=== PATIENT | male | born 1990 | race Caucasian/White ===

== ENCOUNTER 2023-03-30 12:52 | Emergency (ER) | payer OTHER, SELFPAY ==
[2023-03-30 13:08] VITALS: BP 133/83; PULSE 84; RESP 16; TEMP 36.3; O2SAT 100
--- NOTE | 2023-03-30 13:19 | ED.SKABFB ---
HPI - Skin/Abscess/Foreign Bdy General Chief complaint: Skin/Abscess/Foreign Body Stated complaint: Left Finger Irritation Time Seen by Provider: 03/30/23 13:19 Source: patient Mode of arrival: ambulatory Limitations: no limitations History of Present Illness HPI narrative: 32-year-old male presents with redness, swelling and tenderness to left index finger for 3 days. 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 Has had similar infection. Denies drainage. Afebrile. All systems reviewed and negative except as noted above. Related Data Home Medications Medication Instructions Recorded Confirmed esomeprazole magnesium 20 mg 20 mg PO DAILY 03/30/23 03/30/23 tablet,delayed release (Nexium 24HR) Allergies Allergy/AdvReac Type Severity Reaction Status Date / Time No Known Allergies Allergy Verified 03/30/23 13:01 Review of Systems Review of Systems: CONSTITUTIONAL: Denies fever, chills, or sweats. EYES: Denies visual changes, redness, or discharge. ENT: Denies rhinorrhea, congestion, sore throat, or otalgia. CARDIOVASCULAR: Denies chest pain, palpitations, or edema. RESPIRATORY: Denies cough or dyspnea. GASTROINTESTINAL: Denies abdominal pain, nausea, vomiting, or diarrhea. GENITOURINARY: Denies dysuria or hematuria. SKIN: Denies rash or itching. Reports redness, swelling and tenderness to left index finger. MUSCULOSKELETAL: Denies back pain, joint pain, or myalgia. NEUROLOGIC: Denies headache, numbness, or weakness. PSYCHIATRIC: Denies anxiety or depression. All other systems reviewed are negative, except as documented in HPI. PMFSH Comments At time of signature, agree with nursing past medical, surgical, social and family history. There is no relevant family history pertinent to the presenting complaint. Exam Narrative: GENERAL: This is a well-nourished, well-developed patient, in no apparent distress. HEAD: normocephalic, atraumatic. EYES: PERRL. Sclera clear/white. Vision is grossly intact. EARS: External ears normal NOSE: External nose normal NECK: Neck supple, non-tender without lymphadenopathy, masses or thyromegaly. CARDIOVASCULAR: Regular rate and rhythm without murmurs, gallops, or rubs. RESPIRATORY: Clear to auscultation. Breath sounds equal bilaterally. No wheezes, rales, or rhonchi. SKIN: warm, Dry, intact with no suspicious lesions or rash, good texture and turgor. erythema to the medial aspect cuticle left index finger with swelling, tenderness on palpation. No fluctuance or drainage. NEURO: awake, alert, and oriented to person, place and time. There were no obvious focal neurologic abnormalities. EXTREMITIES: No joint tenderness, effusion, or edema noted. Course Course Level of Care: Express Care Visit Vital Signs Vital signs: Vital Signs Temperature 36.3 C L 03/30/23 13:08 Pulse Rate 84 03/30/23 13:08 Respiratory Rate 16 03/30/23 13:08 Blood Pressure 133/83 03/30/23 13:08 Pulse Oximetry 100 03/30/23 13:08 Oxygen Delivery Room Air 03/30/23 13:08 Temperature 36.3 C L 03/30/23 13:08 Pulse Rate 84 03/30/23 13:08 Respiratory Rate 16 03/30/23 13:08 Blood Pressure 133/83 03/30/23 13:08 Pulse Oximetry 100 03/30/23 13:08 Oxygen Delivery Room Air 03/30/23 13:08 Reviewed MDM - Skin/Abscess/Foreign Bdy MDM Narrative Medical decision making narrative: there is no purulence, drainage or fluctuance noted for I and D of paronychia. Will start on Augmentin and Bactroban. Patient is aware of diagnosis, understands and agrees to treatment plan. Anticipatory guidance given. Patient agrees to follow-up as directed and is aware of reasons to seek care at the emergency department. Portions of this record may have been created with voice recognition software Discharge Plan Discharge Clinical Impression: Paronychia of left index finger Patient Disposition: Home, Self-Care Condition: Stable Instructions: Antibiotic F
== END 2023-03-30 13:31 | disposition home or self-care (01) ==
PROVIDERS: Emergency Provider Nurse Practitioner Family
DX: L03.012 Cellulitis of left finger (principal); Z86.16 Personal history of COVID-19
CPT/HCPCS: 99213; G0463

== ENCOUNTER 2023-04-06 11:54 | Emergency (ER) | payer OTHER, SELFPAY ==
--- NOTE | 2023-04-06 12:06 | ED.SKABFB ---
HPI - Skin/Abscess/Foreign Bdy General Stated complaint: Finger Lt Hand Irritation Source: patient and RN notes reviewed History of Present Illness HPI narrative: 32 yo M presents to urgent care with complaints of continued redness to his left index finger. Pt was here 7 days ago for a paronychia and treated with augmentin and mupiorcin. Pt states it is improving and is no longer swollen or having drainage. Pt denies any significant pain or fevers. Related Data Home Medications Medication Instructions Recorded Confirmed esomeprazole magnesium 20 mg 20 mg PO DAILY 03/30/23 03/30/23 tablet,delayed release (Nexium 24HR) Allergies Allergy/AdvReac Type Severity Reaction Status Date / Time No Known Allergies Allergy Verified 04/06/23 12:35 Review of Systems Review of Systems: CONSTITUTIONAL: Denies fever, chills, or sweats. EYES: Denies visual changes, redness, or discharge. ENT: Denies otalgia and sore throat CARDIOVASCULAR: Denies chest pain, palpitations, or edema. RESPIRATORY: Denies cough or dyspnea. GASTROINTESTINAL: Denies abdominal pain, nausea, vomiting, or diarrhea. GENITOURINARY: Denies dysuria or hematuria. MUSCULOSKELETAL: Denies back pain, joint pain, or myalgia. NEUROLOGIC: Denies headache, numbness, or weakness. Pertinent positives per HPI. PMFSH Comments At the time of my signature, I reviewed and agree with the nursing past medical, surgical, social, and family history. There is no relevant family history pertinent to the patient complaint. Exam Narrative: GENERAL: This is a well-nourished, well-developed patient, in no apparent distress. HEAD: normocephalic, atraumatic. EYES: Sclera clear/white. Vision is grossly intact. EARS: External ears normal, auditory canals clear and without drainage. Hearing grossly intact. NOSE: External nose normal with no obvious nasal discharge, nares without redness, no rhinorrhea. THROAT: Mucous membranes moist, posterior pharynx clear. NECK: Neck supple, non-tender without lymphadenopathy, masses or thyromegaly. CARDIOVASCULAR: Regular rate RESPIRATORY: No respiratory distress SKIN: warm, intact with no suspicious lesions or rash, good texture and turgor. NEURO: awake, alert, and oriented to person, place and time. There were no obvious focal neurologic abnormalities. EXTREMITIES: No clubbing, cyanosis, or edema. No joint tenderness, effusion, or edema noted. Leeft index finger tip noted to be slightly erythremic. No swelling or exudate or fluctuance noted. BACK: Nontender without deformity or crepitus. No flank tenderness. Course Course Level of Care: Express Care Visit Vital Signs Vital signs: Vital Signs Temperature 97.7 F 04/06/23 12:24 Pulse Rate 61 04/06/23 12:24 Respiratory Rate 18 04/06/23 12:24 Blood Pressure 147/92 H 04/06/23 12:24 Pulse Oximetry 100 04/06/23 12:24 Oxygen Delivery Room Air 04/06/23 12:24 Temperature 97.7 F 04/06/23 12:24 Pulse Rate 61 04/06/23 12:24 Respiratory Rate 18 04/06/23 12:24 Blood Pressure 147/92 H 04/06/23 12:24 Pulse Oximetry 100 04/06/23 12:24 Oxygen Delivery Room Air 04/06/23 12:24 reviewed MDM - Skin/Abscess/Foreign Bdy MDM Narrative Medical decision making narrative: Continue using the mupiorcin twice a day for the next 7 days. If you notice any new or worsenign symptoms, go to the ER for further evaluation. Differential Diagnosis Differential diagnosis: Likely abscess of skin or subcutaneous tissue, urticaria, cellulitis, insect bites, impetigo and contact dermatitis Critical Care Time Critical Care Time Critical Care Time: No Discharge Plan Discharge Clinical Impression: Visit for wound check Patient Disposition: Home, Self-Care Condition: Stable Instructions: Antibiotic Form, Paronychia (ED) Additional Instructions: Continue using the mupiorcin twice a day for the next 7 days. If you notice any new or worsenign symptoms, g
[2023-04-06 12:24] VITALS: BP 147/92; PULSE 61; RESP 18; TEMP 36.5; O2SAT 100
== END 2023-04-06 12:39 | disposition home or self-care (01) ==
PROVIDERS: Emergency Provider Nurse Practitioner Family
DX: Z48.00 Encounter for change or removal of nonsurgical wound dressing (principal); L53.9 Erythematous condition, unspecified; K21.9 Gastro-esophageal reflux disease without esophagitis; Z86.16 Personal history of COVID-19
CPT/HCPCS: 99211; 99213; G0463

== ENCOUNTER 2023-04-26 11:48 | Emergency (ER) | payer OTHER, SELFPAY ==
[2023-04-26 12:07] VITALS: BP 126/72; PULSE 65; RESP 18; TEMP 36; O2SAT 100
--- NOTE | 2023-04-26 12:24 | ED.GENADULT ---
HPI - General Adult General Chief complaint: Ear Stated complaint: rt ear discomfort Time Seen by Provider: 04/26/23 12:15 Source: patient, RN notes reviewed and old records reviewed Mode of arrival: ambulatory Limitations: no limitations History of Present Illness HPI narrative: 32 year male patient presents to [facility] with complaints right sinus pain and right earache this started 2 days ago. Patient states has sinus congestion for several months, but states has allergy issues. Patient worried has foreign body in right ear. MD complaint: Earache, sinus congestion/pain Onset (ago): day(s) (2) Related Data Allergies Allergy/AdvReac Type Severity Reaction Status Date / Time No Known Allergies Allergy Verified 04/06/23 12:35 Review of Systems Constitutional: Constitutional: Reports no additional constitutional complaints Eyes: Eyes: Reports no additional eye complaints ENT: Denies vertigo, Denies dizziness and Reports nasal congestion ( right-sided) Comments: right earache Cardiovascular: Cardiovascular: Reports no additional cardiovascular complaints Respiratory: Respiratory: Reports no additional respiratory complaints Neurologic: Reports system reviewed and no additional complaints, except as documented PMFSH Comments At the time of my signature, I reviewed and agree with the nursing past medical, surgical, social, and family history. There is no relevant family history pertinent to the patient complaint. Exam Const: General: cooperative, healthy appearing, no acute distress and well nourished Nutritional Appearance: well nourished Orientation/consciousness: patient oriented x3 Limitations: no limitations HENMT: Head: normal to inspection and normocephalic Ears: external ears normal, mastoids normal, Abnormal EAC present and TM abnormal with fluid behind the TM Face/Nose/Sinus: Nasal discharge present purulent Face and sinus: sinus tenderness frontal ( right-sided) Mouth: Yes Normal oral and palatal mucosa present, Yes oropharynx normal and Yes moist mucous membranes Throat: posterior oropharynx normal, tonsils normal, uvula midline and no uvular edema Eyes: General: appearance normal, both eyes and all related structures Sclera: sclerae normal Pupils: Equal, round and reactive pupils present Resp: Effort & Inspection: normal respiratory effort, able to speak in complete sentences, no audible wheezes, no cough, no respiratory distress and no retractions Auscultation: clear to auscultation bilaterally, no crackles, no rales, no rhonchi and no wheezes Cardio: Rate: regular rate Rhythm: regular rhythm Skin: General skin exam: normal color and no rashes or lesions noted Neuro: General: patient oriented x3 Cranial nerves: Yes Equal, round and reactive pupils present Psych: Appearance: grossly normal Course Course Emergency Course: Patient is aware of diagnosis, understands and agrees to treatment plan.? Anticipatory guidance given.? Patient agrees to follow-up as directed and is aware of reasons to seek care at the emergency department. Some parts of this dictation were generated by voice recognition software and may contain typographical and/or grammatical inaccuracies. Level of Care: Express Care Visit Vital Signs Vital signs: Vital Signs Temperature 96.8 F L 04/26/23 12:07 Pulse Rate 65 04/26/23 12:07 Respiratory Rate 18 04/26/23 12:07 Blood Pressure 126/72 04/26/23 12:07 Pulse Oximetry 100 04/26/23 12:07 Oxygen Delivery Room Air 04/26/23 12:07 Temperature 96.8 F L 04/26/23 12:07 Pulse Rate 65 04/26/23 12:07 Respiratory Rate 18 04/26/23 12:07 Blood Pressure 126/72 04/26/23 12:07 Pulse Oximetry 100 04/26/23 12:07 Oxygen Delivery Room Air 04/26/23 12:07 Reviewed Medical Decision Making MDM Narrative Medical decision making narrative: Patient resting comfortably without signs or symptoms of acute distress, nontoxic appearing, v
== END 2023-04-26 12:34 | disposition home or self-care (01) ==
PROVIDERS: Emergency Provider Registered Nurse
DX: J01.90 Acute sinusitis, unspecified (principal); B96.89 Other specified bacterial agents as the cause of diseases classified elsewhere
CPT/HCPCS: 99213; G0463

== ENCOUNTER 2023-07-17 11:23 | Emergency (ER) | payer OTHER, SELFPAY ==
--- NOTE | ~2023-07-17 | XR_ITS ---
EXAMINATION: XR chest 2V DATE: 07/17/2023 11:57 INDICATION: Bilateral chest pain. TECHNIQUE: Frontal and lateral views of the chest were obtained on 3 radiographs. COMPARISON: None. FINDINGS: There is no pneumonia, pleural effusion or pneumothorax. The heart size is normal. IMPRESSION: 1. No acute cardiopulmonary disease. Reviewed, dictated and finalized at location E. ASE COORDINATOR
[2023-07-17 11:43] VITALS: BP 146/108; PULSE 86; RESP 20; TEMP 37.1; O2SAT 99
--- NOTE | 2023-07-17 11:59 | ED.GENADULT ---
HPI - General Adult General Chief complaint: Chest Pain Stated complaint: chest pain,rt arm bruising Source: patient, RN notes reviewed and old records reviewed Mode of arrival: ambulatory Limitations: no limitations History of Present Illness HPI narrative: 32-year-old male patient presents to Express Care with complaint cough, congestion this started several weeks ago. The patient states then last night started having bilateral chest pain and abdominal pain. Patient states pain is intermittent. Patient denies shortness of breath. Patient states has also been having less sided chest pain for a long time that is generated relieved with Tums /antacids. Related Data Allergies Allergy/AdvReac Type Severity Reaction Status Date / Time No Known Allergies Allergy Verified 04/06/23 12:35 Review of Systems Constitutional: Constitutional: Reports no additional constitutional complaints, Denies body ache(s), Denies chills, Denies fatigue, Denies fever(s) and Denies headache(s) Eyes: Eyes: Reports no additional eye complaints and Denies blurry vision ENT: Reports system reviewed and no additional complaints, except as documented, Denies vertigo, Denies dizziness, Denies ear discharge, Denies otalgia, Denies facial pain, Denies headache(s), Reports nasal congestion, Reports nasal discharge, Denies sinus pain, Denies sinus pressure and Denies sore throat Cardiovascular: Cardiovascular: Reports no additional cardiovascular complaints, Reports chest pain, Denies chest pain at rest, Denies rapid heart rate and Denies dyspnea Respiratory: Respiratory: Reports no additional respiratory complaints, Reports chest congestion, Reports cough, Denies pain on inspiration, Denies pain with cough and Denies dyspnea Gastrointestinal: Gastrointestinal: Denies abdominal pain, Denies diarrhea, Denies nausea and Denies vomiting Integumentary/Breasts: Skin/Breast: Denies rash Neurologic: Reports system reviewed and no additional complaints, except as documented, Denies vertigo, Denies dizziness and Denies headache(s) Endocrine: Endocrine: Denies fatigue PMFSH Comments At the time of my signature, I reviewed and agree with the nursing past medical, surgical, social, and family history. There is no relevant family history pertinent to the patient complaint. Exam Const: General: cooperative, healthy appearing, no acute distress and well nourished Nutritional Appearance: well nourished Orientation/consciousness: patient oriented x3 Limitations: no limitations HENMT: Head: normal to inspection and normocephalic Ears: external ears normal and mastoids normal Face/Nose/Sinus: normal facial exam Face and sinus: normal facial exam Mouth: Yes Normal oral and palatal mucosa present, Yes oropharynx normal and Yes moist mucous membranes Throat: posterior oropharynx normal, tonsils normal, uvula midline and no uvular edema Eyes: General: appearance normal, both eyes and all related structures Sclera: sclerae normal Pupils: Equal, round and reactive pupils present Chest: Chest palpation & inspection: normal inspection of the chest and tenderness (bilateral chest pain. Pain is reproducible with palpitation) pectoral muscle Resp: Effort & Inspection: normal respiratory effort, able to speak in complete sentences, no audible wheezes, no cough, no respiratory distress and no retractions Auscultation: clear to auscultation bilaterally, no crackles, no rales, no rhonchi and no wheezes Cardio: Rate: regular rate Rhythm: regular rhythm Skin: General skin exam: normal color and no rashes or lesions noted Neuro: General: patient oriented x3 Cranial nerves: Yes Equal, round and reactive pupils present Psych: Appearance: grossly normal Mental Status: mental status grossly normal Speech and movement: Normal speech and movement present Affect: normal affect Course Course Emergency Course: Patient is aware of diagnosis, understands and agrees to treatment plan.?
--- NOTE | 2023-07-18 09:26 | ECG_ITS ---
Measurements Intervals [place] Rate: 74 P: 33 [place]: 138 QRS: -25 QRSD: 96 T: 15 QT: 379 QTc: 422 Interpretive Statements SINUS RHYTHM INCOMPLETE RIGHT BUNDLE BRANCH BLOCK BASELINE ARTIFACT- I, III, AVL BORDERLINE ECG NO PREVIOUS ECG AVAILABLE FOR COMPARISON Electronically Signed On 07-18-2023 10:53:46 [employer]ELD [employer] F[employer]ING SUPERVISOR by Landen Santoyo D.O.
== END 2023-07-17 12:27 | disposition home or self-care (01) ==
PROVIDERS: Emergency Provider Registered Nurse
DX: J40 Bronchitis, not specified as acute or chronic (principal); I45.10 Unspecified right bundle-branch block; K21.9 Gastro-esophageal reflux disease without esophagitis; Z86.16 Personal history of COVID-19
CPT/HCPCS: 71046; 93005; 99213; G0463

== ENCOUNTER 2025-02-02 16:28 | Emergency (ER) | payer OTHER, SELFPAY ==
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
--- OUTSIDE RECORDS SUMMARY | 2025-02-02 16:30 | XMS_ITS | Clinical Summary ---
Author Organization [facility] [employer] Address [address] [place] [address] Care Team Providers Care Dining Room Cashier Name Role Phone Odalys Mccann VARSHA-PUSHER RUNNER Primary Care Provider + Source Comments [facility] [employer],non-owned Affiliates and Associated Physician Practices is amultiple site organization consisting of ambulatory clinics and hospital sitesin [place], [place], [place] and [place]. This disclosure is being madepursuant to the Care Everywhere program and may not contain all information available regarding this patient. Last updated 18.[employer] Allergies No known active allergies Medications * Be aware that medications may not be up to date on this document. Alwaysverify current medications with the patient. traMADol (ULTRAM) 50 MG tabletIndicatio ns:Right elbow pain Take 1 tablet by mouth every 6 hours as needed for Pain 16 tablet 9 Active Additional Information Patient not taking.Reported on 11/01/2019 naproxen (NAPROSYN) 500 MG tabletIndicatio ns:Right elbow pain Take 1 tablet by mouth 2 times daily 30 tablet 9 Active Additional Information Patient not taking.Reported on 11/01/2019 predniSONE (DELTASONE) 10 MG tablet Take 1 tablet by mouth as directed 4 tab day1, then3 tabs for 3 days, then 2 tabs for 3 days , then1 tab for 3 days 22 tablet 0 Active Additional Information Patient not taking.Reported on 02/26/2021 Esomeprazole Magnesium (NEXIUM PO) Active ketoconazole (NIZORAL) 2 % creamIndication s:Tinea corporis Apply to affected area 2 times daily 60 g Active Active Problems No known active problems Social History Tobacco Use Types Packs/Day Years Used Date Smoking Tobacco: Former Smokeless Tobacco: Never Alcohol Use Standard Drinks/Week Comments Not Currently 0 (1 standard drink = 0.6 oz pur e alcohol) Sex and Gender Information Value Date Recorded Sex Assigned at Not on file Legal Sex Male 12:28 PM CDT Gender Identity Not on file Sexual Orientation Not on file Last Filed Vital Signs Vital Sign Reading Time Taken Comments Blood Pressure 110/70 02/26/2021 7:22 AM CDT Pulse 75 02/26/2021 7:22 AM CDT Temperature 36.9 C (98.5 F) 02/26/2021 7:22 AM CDT Respiratory Rate 16 02/26/2021 7:22 AM CDT Oxygen Saturation 99% 02/26/2021 7:22 AM CDT Inhaled Oxygen Concentration - - Weight 90.7 kg (200 lb) 02/26/2021 7:22 AM CDT Height 180.3 cm (5' 11) 02/26/2021 7:22 AM CDT Body Mass Index 27.89 02/26/2021 7:22 AM CDT Plan of Treatment Health Maintenance Due Date Last Done Comments HIV SCREENING 2005 HEPATITIS C SCREENING 09/13/2008 DTAP/TDAP/TD VACCINES (1 - Tdap) 2009 HEPATITIS B VACCINE (1 of 3 - 19+ 3-dose series) 2009 HPV VACCINE (1 - 3-dose SCDM series) 2017 DEPRESSION SCREENING 05/14/2024 COVID-19 VACCINE (3 - 2024-2 6 season) 2025 12/21/2020, 11/30/2020 INFLUENZA VACCINE (#1) 2025 , 03/06/2017 ZOSTER VACCINE (1 of 2) 2040 HIB VACCINE Aged Out No longer eligi ble based on patient's age to complete this topic MENINGOCOCCAL (Group B) VACCINE SHARED DECISION-MAKING Aged Out No longer eligible based on patient's age to complete this topic MENINGOCOCCAL GROUPS A/C/Y/W VACCINE Aged Out No longer eligible b ased on patient's age to complete this topic PNEUMOCOCCAL VACCINE Aged Out No long er eligible based on patient's age to complete this topic Insurance [employer] Care Teams Dining Room Cashier Relationship Specialty Start Date End Date Odalys Mccann APRN-CNP [address], [address] [place] [address] PCP - General Nurse Practitioner Family 06/23/18
--- OUTSIDE RECORDS SUMMARY | 2025-02-02 16:30 | XMS_ITS | Clinical Summary ---
Author Organization [facility] Address [address] [place] [address] Care Team Providers Care Network Security Engineer Name Role Phone Unavailable Primary Care Provider Unavailabl e Social History Tobacco Use Types Packs/Day Years Used Date Smoking Tobacco: Never Assessed Sex and Gender Information Value Date Recorded Sex Assigned at Not on file Legal Sex Male 8:23 AM CDT Gender Identity Not on file Sexual Orientation Not on file Plan of Treatment Health Maintenance Due Date Last Done Comments Hepatitis C Virus (HCV) Screening 1990 TdaP Immunization 1990 Hepatitis B Immunization (1 of 3 - 19+ 3-dose series) 2009 Human Papillomavirus (HPV) Immunization (1 - 3-dose SCDM series) 2017 SARS-COV-2 Immunization ( - season) 2024 Influenza Immunization (#1) 2025 03/06/2017 Respiratory Syncytial Virus (RSV) Immunization (Adult) (1 - 1-dose 75+ series) 2065 Meningococcal Immunization (ACWY) Aged Out No longer eligible based on patient's age to complete this topic Pneumococcal Immunization Combined Aged Out No longer eligible based on patient's age to complete this topic Rotavirus Immunization Aged Out No lo nger eligible based on patient's age to complete this topic
[2025-02-02 16:31] VITALS: BP 130/79; PULSE 81; RESP 18; TEMP 36.7; O2SAT 99
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
[2025-02-02] MEDS: HYDROcodone/acetaminophen (*CRX) 5-325 MG TABLET 1 TAB PO (17:59)
== END 2025-02-02 19:26 | disposition home or self-care (01) ==
LOC: ANHED 19:20
PROVIDERS: Emergency Provider Emergency Medicine
DX: S13.4XXA Sprain of ligaments of cervical spine, initial encounter (principal); V49.40XA Driver injured in collision with unspecified motor vehicles in traffic accident, initial encounter
CPT/HCPCS: 70450; 72125; 72128; 72131; 73030; 99284; A9270